=== PATIENT | female | born 1970 | race Caucasian/White ===

== ENCOUNTER 2016-08-28 13:18 | Emergency (ER) | payer OTHER ==
[2016-08-28 13:31] VITALS: BP 183/118
--- NOTE | 2016-08-28 14:49 | ED ---
Laceration/Wound HPI - HPI Summary HPI Summary: Patient was holding a piece of ceramic dishware that broke in her hand and she cut her right thumb. She applied a pressure dressing to control bleeding. Her tetanus is up to date. She did not take any medication for pain. - History of Current Complaint Stated Complaint: RT THUMB LAC Time Seen by Provider: 08/28/16 13:37 Hx Obtained From: Patient Mechanism of Injury: Sharp/Blunt Trauma Onset/Duration: Sudden Onset Aggravating: Movement Alleviating: Nothing Timing: Constant Onset Severity: Moderate Current Severity: Moderate Pain Intensity: 6 Associated Signs & Symptoms: Pain Related Hx: Dominant Hand (Right) PMH/Surg Hx/FS Hx/Imm Hx Endocrine/Hematology History: Denies: Hx Anticoagulant Therapy, Hx Diabetes, Hx Thyroid Disease Cardiovascular History: Denies: Hx Hypertension, Hx Pacemaker/ICD, Other Cardiovascular Problems/ Disorders Respiratory History: Denies: Hx Asthma, Hx Chronic Obstructive Pulmonary Disease (COPD), Other Respiratory Problems/Disorders GI History: Denies: Other GI Disorders History: Denies: Hx Renal Disease Musculoskeletal History: Denies: Hx Rheumatoid Arthritis, Other Musculoskeletal History Sensory History: Denies: Hx Contacts or Glasses, Hx Hearing Aid Opthamlomology History: Denies: Hx Contacts or Glasses Neurological History: Reports: Hx Migraine - RARELY CLUSTER MIGRAINES Denies: Hx Dementia, Hx Seizures, Other Neuro Impairments/Disorders Psychiatric History: Reports: Hx Anxiety - NO MEDS Denies: Hx Substance Abuse - Surgical History Surgery Procedure, Year, and Place: facial reconstruction r/t trauma 09/2012, [facility]. APPENDECTOMY, SINUS [id number] FOR SCAR TISSUE Hx Anesthesia Reactions: No Infectious Disease History: No Infectious Disease History: Denies: Hx Hepatitis, Hx Human Immunodeficiency Virus (HIV), Traveled Outside the in Last 30 Days - Family History Known Family History: Positive: None - Social History Occupation: Employed Full-time Lives: With Family Alcohol Use: Occasionally Alcohol Amount: 2 PER DAY Substance Use Type: Reports: None Smoking Status (MU): Never Smoked Tobacco Have You Smoked in the Last Year: No Review of Systems Positive: Other - 2 cm laceration to the palmar aspect of the right thumb All Other Systems Reviewed And Are Negative: Yes Physical Exam Triage Information Reviewed: Yes Vital Signs On Initial Exam: Initial Vitals Temp Pulse Resp BP Pulse Ox 98.7 F 94 20 183/118 100 08/28/16 13:26 08/28/16 13:26 08/28/16 13:26 08/28/16 13:26 08/28/16 13:26 Vital Signs Reviewed: Yes Appearance: Positive: Well-Appearing, Well-Nourished, Pain Distress Skin: Positive: Warm, Skin Color Reflects Adequate Perfusion, Dry, Tender - 2 cm laceration to the palmar aspect of the right distal thumb, Soft Head/Face: Positive: Normal Head/Face Inspection Eyes: Positive: EOMI, BRUCE, Conjunctiva Clear ENT: Positive: Hearing grossly normal Respiratory/Lung Sounds: Positive: Breath Sounds Present Cardiovascular: Positive: RRR Musculoskeletal: Positive: Strength/ROM Intact, Pain @ - TTP palmar aspect of the distal right thumb Neurological: Positive: Sensory/Motor Intact, Alert, Oriented to Person Place, Time, NV Bundle Intact Distally Psychiatric: Positive: Affect/Mood Appropriate AVPU Assessment: Alert Procedures - Laceration/Wound Repair 1 Location: upper extremity - right thumb Description: Linear Anesthesia: Local, 2.0%, Lido Length, Depth and Shape: 2 cm long, 3mm wide, 3 mm deep Irrigated w/ Saline (ccs): 200 Laceration/Wound Explored: clean Closure: Single Layer Debridement: minimal Suture Type: Nylon - 5.0 Number of Sutures: 8 Layer Closure?: No Sterile Dressing Applied?: No Diagnostics - Vital Signs Vital Signs Temp Pulse Resp BP Pulse Ox 08/28/16 13:26 98.7 F 94 20 183/118 100 - Laboratory Lab Statement: Any lab studies that have been ordered have been reviewed, and results considered in the medical decision making process. Laceration Repair Course/Dx - Differential Dx Differental Diagnoses: Abrasion, Avulsion, Dehiscence, Hematoma, Laceration, Puncture Wound - Clinical Impression Provider Diagnoses: Laceration Discharge - Discharge Plan Condition: Stable Disposition: HOME Patient Education Materials: Finger Laceration (ED) Referrals: Naa Matthew MD [Primary Care Provider] - Additional Instructions: Keep your dressing clean, dry and in place for the next 24 hours. You may then remove and shower. Pat dry and cover with a clean, dry band-aid if you are going to be in a "dirty" environment, otherwise it can remain open to air. Do not soak the wound in any body of water until the sutures are removed. Elevate the hand above your heart and use Ibuprofen 600mg three times daily with meals for the next 5-7 days to reduce pain and swelling. Follow-up with your primary care provider or return to the emergency department in 10-12 days for suture removal. Return to the emergency department sooner if your symptoms worsen.
== END 2016-08-28 14:35 | disposition home or self-care (01) ==
LOC: ED 13:18
DX: S61.011A Laceration without foreign body of right thumb without damage to nail, initial encounter (principal); W45.8XXA Other foreign body or object entering through skin, initial encounter; Y92.9 Unspecified place or not applicable
CPT/HCPCS: 12001; 99281

== ENCOUNTER 2018-03-25 04:34 | Emergency (ER) | payer OTHER | END 2018-03-25 05:39 | disposition left against medical advice (07) | LOC: ED 04:34 | DX: R03.0 Elevated blood-pressure reading, without diagnosis of hypertension (principal); Z53.21 Procedure and treatment not carried out due to patient leaving prior to being seen by health care provider ==